=== PATIENT | female | born 1970 | race Caucasian/White ===

== ENCOUNTER 2016-10-16 14:18 | Emergency (ER) | payer OTHER ==
--- NOTE | ~2016-10-16 | EKG ---
PATIENT: ILA IVAN UNIT #: [id number] Ventricular Rate: 71 BPM Atrial Rate: 71 BPM P-R Interval: 144 ms QRS Duration: 70 ms Q-T Interval: 410 ms QTC Calculation(Bezet): 445 ms P [place]: 55 degrees Calculated R [place]: 19 degrees Calculated T [place]: 56 degrees Diagnosis Line: Normal sinus rhythm with sinus arrhythmia Diagnosis Line: Normal ECG Diagnosis Line: When compared with ECG of 09-DEC-2015 14:51, Diagnosis Line: No significant change was found Diagnosis Line: Confirmed by GLYNN FARAH MD ([id number]) on Diagnosis Line: 10/25/2016 8:27:43 AM INTERPRETING MD: GAGAN PEREZ
--- NOTE | ~2016-10-16 | CR63 ---
[facility]. [facility] A Service of [facility] & [facility] RADIOLOGY TEXT RESULTS PATIENT: ILA IVAN LOCATION: SED : 66 UNIT #: [id number] AGE: [address]: Jacqueline Patiño SEX: F ORDER DR: [id number] [address] [address] [id number] E MR#: [id number] Acc #: [id number] NAME: ILA IVAN : 1970 SEX: F STUDY DATE/TIME: 10/16/2016 15:43 UNIT: SED ROOM: STUDY DESCRIPTION: CR Chest 2 View Attending Physician: Jacqueline Patiño Pa-C Ordering Physician: Jacqueline Patiño Pa-C Primary Care Physician: Ester Leach A.P.R.N. MEDICAL IMAGING REPORT This report is preliminary unless electronic signature is present. EXAM Two views chest, 10/16/16 HISTORY Swollen legs, short of air 5 days' duration. Out of blood pressure medication because of insurance. Currently a smoker. FINDINGS PA and lateral radiographs of the chest are presented. Comparison 08/27/13. No acute bony abnormality. Degenerative changes in spine. Heart borderline enlarged. Pulmonary vasculature is prominent but remains distinct, consistent with underlying pulmonary vascular congestion. No boyd pulmonary edema. No indication of pneumonia. No pleural effusion or pneumothorax and no suspicious nodule. Calcified granuloma right lung base, stable. Dictated by... Cosmo Knight M.D. THIS IS AN ELECTRONICALLY VERIFIED REPORT Cosmo Knight M.D. at 10/17/2016 5:16 PM FARZAD/yasmine TD: 10/16/2016 22:15 JOB #: [id number] MEDICAL IMAGING REPORT Page 1 of 1
[~2016-10-16 14:18] MED LIST: ACCURETIC 20-121 TAB PO; ALBUTEROL17 GM; ALBUTEROL17 GM INH; ALBUTEROL20 ml; AMOXICILLIN PO; ATIVAN PO; BLEPH-105 ML OP; BP MEDICATION; CELEBREX100 MG PO; CHOLESTEROL MED; CIPRO PO; COUGH SYRU100 MG/5 M PO; DELSYM30 MG/5 ML PO; DELTASONE20 MG PO; DICLOFENAC PO; FLEXERIL PO; FLEXERIL10 M1 PO; GLUCOPHAGE500 M1 PO; IBUPROFEN PO; KETOPROFEN PO; LIPITOR20 MG PO; LISINOPRIL10 MG PO; LORTAB 5-325 M1 EACH PO; MEDROL DOSEPAK4 MG PO; NEURONTIN300 MG PO; NO MEDICATIONS; PARAFON FORTE500 MG PO; PERCOCET 5-3251 TAB PO; PERCOCET10 PO; PHENERGAN PO; PHENERGAN PR; PREDNISONE PO; SYMBICORT INH; TORADOL10 MG PO; TYLENOL #3 PO; UNKNOWN PAIN MED; VICODIN 5/1 TAB 5/50 PO; ZITHROMAX PO; ZOLOFT PO; ZOVIRAX800 MG PO
[2016-10-16 15:29] LABS: BASOPHIL# 0.1 X10e3 (0-0.3); EOSINOPHIL# 0.2 X10e3 (0-0.7); EOSINOPHIL% 1.8 % (0.0-7.0); HEMOGLOBIN 16.7 gm/dL (12.0-16.0); LYMPHOCYTE# 2.4 X10e3 (1.0-3.5); LYMPHOCYTE% 21.1 % (17.0-45.0); MEAN CELL VOLUME 91.1 FL (83-96); MEAN CORPUSCULAR HEMOGLOBIN 30.5 PG (28-34); MEAN CORPUSCULAR HGB CONC 33.5 g/dL (30-36); MEAN PLATELET VOLUME 7.8 FL (6.5-11.5); MONOCYTE% 8.6 % (3.0-12.0); NEUTROPHIL# 7.5 X10e3 (1.5-7.1); NEUTROPHIL% 67.5 % (40-75); PLATELET COUNT 237 X10e3 (140-420); RED BLOOD COUNT 5.48 X10e (3.90-5.30); RED CELL DISTRIBUTION WIDTH 14.6 % (11.0-15.5); WHITE BLOOD COUNT 11.1 X10e3 (4.0-10.5)
[2016-10-16 15:37] LABS: POC - CKMB <1.0 ng/mL (0.0-7.9); POC - TROPONIN 0.05 ng/mL (<=0.05)
[2016-10-16 15:41] LABS: DIFF IND NO
[2016-10-16 15:48] LABS: ALBUMIN SERUM 4.1 g/dL (3.5-5.0); BILIRUBIN, DIRECT 0.1 mg/dL (0.0-0.2); BILIRUBIN,INDIRECT 0.4 mg/dL (0.0-0.9); BILIRUBIN,TOTAL 0.5 mg/dL (0.2-2.0); CALCIUM SERUM 9.2 mg/dL (8.4-10.2); CREATININE SERUM 0.8 mg/dL (0.6-1.4); GLOM FILT RATE Estimated 87.3 mL/min (>60); POTASSIUM 4.2 mmol/L (3.5-5.1); PROTEIN TOTAL SERUM 7.4 g/dL (6.0-8.3)
== END 2016-10-16 17:17 | disposition home or self-care (01) ==
LOC: SED 14:18
PROVIDERS: Physician Assistant Medical
DX: J44.9 Chronic obstructive pulmonary disease, unspecified (principal); I10 Essential (primary) hypertension; E11.9 Type 2 diabetes mellitus without complications; F41.9 Anxiety disorder, unspecified; F17.210 Nicotine dependence, cigarettes, uncomplicated
CPT/HCPCS: 36415; 71020; 80048; 80076; 82553; 84484; 85025; 85379; 93005; 99285

== ENCOUNTER 2016-10-24 12:27 | Inpatient (IN) | payer OTHER ==
--- NOTE | ~2016-10-24 | CO ---
Unit #: [id number] #: [id number] Patient: ILA IVAN [id number] [address] [place], [place] [address] [id number] I MR#: [id number] NAME: ILA IVAN ROOM: 55 Age: 46 Sex: F Admission Date: 10/24/2016 : 1970 Attending Physician: Alexey Tarango M.D. Primary Care Physician: Alejandra Primary Care Physician Consultation Date: 10/25/2016 CONSULTATION REPORT REASON FOR CONSULT Hypoxia. HISTORY OF PRESENT ILLNESS This is a pleasant 46-year-old female with past medical history significant for morbid obesity, hypertension, COPD, ex-smoker who presented to the emergency room as a transfer from [facility] for pyelonephritis management and SVT. The patient stated that she has been fatigued and drowsy during the day for the last few weeks. She had nausea, vomiting and decreased oral intake over the last few days. Upon presentation to the other facility, the patient was found to have severe pyelonephritis. The patient was resuscitated with IV hydration generously, and she was transferred to our facility. Of note, the patient had an episode of SVT, and she was placed on Cardizem drip. The patient underwent cardioversion with conversion to normal sinus rhythm. The patient stated that she smoked for 30 years but she quit recently. She was told that she had COPD, and she is on albuterol p.r.n. She was also advised to obtain a sleep study as an outpatient, but she never did. PAST MEDICAL HISTORY 1. Hypertension. 2. COPD. 3. Morbid obesity. ALLERGIES No known drug allergies. HOME MEDICATIONS Ibuprofen. FAMILY HISTORY Coronary artery disease. SOCIAL HISTORY The patient lives with her daughter. She smoked for 30 years, but she quit recently. She does not drink alcohol or use street drugs. REVIEW OF SYSTEMS Twelve-point review of systems was obtained and was negative except for what was mentioned in the HPI. PHYSICAL EXAMINATION GENERAL: Patient is in no acute distress at this point. Unit #: [id number] #: [id number] Patient: ILA IVAN HEENT: Atraumatic, normocephalic. PERRLA, EOMI. NECK: Very obese. CHEST: Bilateral fine rhonchi but no wheezing. HEART: S1, S2. No murmur, gallops or rubs. ABDOMEN: Soft, nontender. Bowel sounds positive. No hepatosplenomegaly. EXTREMITIES: No edema or cyanosis. SKIN: No rashes. CUSTOMER SUCCESS ASSOCIATE: Awake, alert, oriented x3. No focal motor/sensory deficits. LABS AND OTHER TESTS LABORATORY: Creatinine 1.2, but it was 2 on presentation. Sodium 136. White blood count 21.3, platelets 163. IMAGING TESTS: Chest x-ray is concerning for pulmonary edema. ASSESSMENT 1. Acute hypoxic respiratory failure. 2. Pulmonary edema. 3. Morbid obesity. 4. Presumed obstructive sleep apnea. 5. Pyelonephritis. 6. Hypertension. 7. Chronic obstructive pulmonary disease. 8. Supraventricular tachycardia. 9. Ex-smoker. PLAN 1. Will continue the patient on oxygen, wean it as tolerated. Will add CPAP at night. 2. Chest x-ray is concerning for pulmonary edema. Patient received generous IV hydration, and she is currently on 200 mL of normal saline. I will stop all her IV fluids at this point, and likely she will need to be diuresed but will reassess later. 3. Will decrease her IV steroids, as I doubt the patient has COPD exacerbation and probably her symptom is more fluid overload. 4. Bronchodilator as needed. 5. She will need sleep study as an outpatient. 6. IV antibiotics pending culture. Dictated by... Jacqueline Cornejo M.D. EA/aubrey TD: 10/25/2016 12:51 JOB #: [id number] Unit #: [id number] #: [id number] Patient: ILA IVAN CONSULTATION REPORT Page 1 of 1 X JACQUELINE HORAN MD X CONSULTATION REPORT
--- NOTE | ~2016-10-24 | HP ---
Unit #: [id number] #: [id number] Patient: ILA IVAN [id number] [address] [place], [place] [address] [id number] I MR#: [id number] NAME: ILA IVAN ROOM: [facility] Age: 46 Sex: F Admission Date: 10/24/2016 : 1970 Attending Physician: Jacqueline Carey M.D. HISTORY AND PHYSICAL CHIEF COMPLAINT Pyelonephritis and supraventricular tachycardia. HISTORY OF PRESENT ILLNESS This pleasant 46-year-old female with hypertension and COPD was transferred from [facility] Emergency Department for pyelonephritis and supraventricular tachycardia. Over the past month, the patient notes that she is drowsy during the day. She notes some numbness in her fingers. Over the past three days, she has been experiencing nausea, vomiting, and not getting out of bed, with right flank pain, concentrated urine, and urinary urgency. She has been experiencing nausea and poor p.o. intake over the past few days with sweats and chills, along with a nonproductive cough. She went to [facility] ER earlier today where she was diagnosed with pyelonephritis. She was bolused with a liter of saline and given Dilaudid, Zofran, [place], and p.o. Levaquin. Then, she developed supraventricular tachycardia unresponsive to escalating doses of adenosine. Ultimately, she underwent cardioversion with conversion to a normal sinus rhythm. Patient denies chest pain with the above or palpitations. No previous history of cardiac disease or arrhythmia. PAST MEDICAL HISTORY 1. Hypertension. 2. Chronic obstructive pulmonary disease. ALLERGIES None. HOME MEDICATIONS Ibuprofen. FAMILY HISTORY Coronary artery disease. SOCIAL HISTORY The patient lives with her daughter. She smokes about a pack and a half a day. She does not drink alcohol. REVIEW OF SYSTEMS Notable for nausea, achiness, right flank pain, urinary urgency with urinary incontinence this morning, hypertension, COPD, tobacco abuse, fever, sweats, chills, and cough. All other systems were reviewed and are otherwise negative. Unit #: [id number] #: [id number] Patient: ILA IVAN PHYSICAL EXAMINATION: GENERAL: A pleasant, morbidly obese, 46-year-old female currently in no acute distress. VITAL SIGNS: Temperature 98.3 but temperature was as high as I believe 100.5 earlier, pulse 75, respirations 22, initial blood pressure 90/60, and O2 saturation 94%. HEENT: Eyes PERRLA. Extraocular muscles are intact. Pharynx is benign. Dry mucosal membranes. NECK: Supple without adenopathy or thyromegaly. CHEST: Crackles at the right base. BACK: Right CVA percussion tenderness. CARDIAC: Normal S1 and S2 without murmur. ABDOMEN: Bowel sounds are present. Right upper quadrant tenderness and right mid abdominal tenderness without rebound guarding. No hepatosplenomegaly or masses. EXTREMITIES: Without clubbing, cyanosis, or edema. Pedal pulses are present. No ulcers on the feet. NEUROLOGIC: Patient is awake, alert, and oriented. Cranial nerves are intact. Equal strength throughout. DIAGNOSTIC STUDIES ADMISSION LABORATORY: Hematocrit is 46.9, white blood count is 25.2, and normal platelet count. SMA-12: Glucose is 176, albumin 3.3, and alkaline phosphatase 101. Lipase is 91. Cardiac markers are negative. Urinalysis positive leukocytes, protein, blood with enumerable red cells and white cells and 4+ bacteria with only a few squamous cells seen. IMAGING: CT scan shows mild right hydroureter and perinephric stranding possibly related to a passed stone. No current kidney stone is noted. Gallstones noted. Hepatomegaly and hepatic steatosis. ASSESSMENT 1. Right-sided pyelonephritis. 2. Supraventricular tachycardia. 3. Complaints of dyspnea. 4. Likely obstructive sleep apnea with daytime drowsiness. 5. Chronic obstructive pulmonary disease and ongoing tobacco abuse. 6. History of hypertension. PLANS 1. Rocephin. I will hold further Levaquin given episode of supraventricular tachycardia. 2. IV fluids. 3. Obtain chest x-ray. 4. EKG, echo, and Cardiology to see. Continue Cardizem drip for now. 5. Check lactic acid level and repeat cardiac enzymes, along with coags and magnesium. 6. Pulmonary to see for likely obstructive sleep apnea. 7. Check thyroid function tests. 8. DVT prophylaxis. 9. Further workup depending on above. 1. Dictated by Shelby Felix M.D. AML/am Unit #: [id number] #: [id number] Patient: ILA IVAN TD: 10/24/2016 22:15 JOB #: [id number] HISTORY AND PHYSICAL Page 1 of 1 X Shelby Felix MD X HISTORY AND PHYSICAL
--- NOTE | ~2016-10-24 | EKG ---
PATIENT: ILA IVAN UNIT #: [id number] Ventricular Rate: 165 BPM Atrial Rate: 165 BPM P-R Interval: 124 ms QRS Duration: 126 ms Q-T Interval: 256 ms QTC Calculation(Bezet): 424 ms P [place]: 249 degrees Calculated R [place]: -101 degrees Calculated T [place]: -13 degrees Diagnosis Line: Atrial flutter with 2 to 1 block Diagnosis Line: Abnormal ECG Diagnosis Line: When compared with ECG of 16-OCT-2016 15:17, Diagnosis Line: Rhythm no longer sinus Diagnosis Line: Confirmed by AGUEDA BERNARD MD ([id number]) on Diagnosis Line: 10/27/2016 6:56:12 AM INTERPRETING MD: ULYSSES
--- NOTE | ~2016-10-24 | EKG ---
PATIENT: ILA IVAN UNIT #: [id number] Ventricular Rate: 73 BPM Atrial Rate: 73 BPM P-R Interval: 144 ms QRS Duration: 68 ms Q-T Interval: 386 ms QTC Calculation(Bezet): 425 ms P [place]: 46 degrees Calculated R [place]: 30 degrees Calculated T [place]: 71 degrees Diagnosis Line: Sinus rhythm with Premature atrial complexes Diagnosis Line: Otherwise normal ECG Diagnosis Line: When compared with ECG of 16-OCT-2016 15:17, Diagnosis Line: (unconfirmed) Diagnosis Line: Rhythm sinus Diagnosis Line: Confirmed by AGUEDA BERNARD MD ([id number]) on Diagnosis Line: 10/26/2016 7:15:04 AM INTERPRETING MD: ULYSSES
--- NOTE | ~2016-10-24 | EKG ---
PATIENT: ILA IVAN UNIT #: [id number] Ventricular Rate: 73 BPM Atrial Rate: 73 BPM P-R Interval: 144 ms QRS Duration: 80 ms Q-T Interval: 388 ms QTC Calculation(Bezet): 427 ms P [place]: 61 degrees Calculated R [place]: 67 degrees Calculated T [place]: 48 degrees Diagnosis Line: Normal sinus rhythm Diagnosis Line: Normal ECG Diagnosis Line: When compared with ECG of 24-OCT-2016 23:26, Diagnosis Line: (unconfirmed) Diagnosis Line: No significant change was found Diagnosis Line: Confirmed by AGUEDA BERNARD MD ([id number]) on Diagnosis Line: 10/26/2016 7:36:12 AM INTERPRETING MD: ULYSSES
--- NOTE | ~2016-10-24 | CR63 ---
[facility] A Service of [facility] RADIOLOGY TEXT RESULTS PATIENT: ILA IVAN LOCATION: [facility] : [birth year] UNIT #: [id number] AGE: [address]: Alexey Tarango MD SEX: F ORDER DR: [id number] [facility] [address] [place], [place] [address] [id number] I MR#: [id number] #: [id number] NAME: ILA IVAN : 1970 SEX: F STUDY DATE/TIME: 10/24/2016 22:21 UNIT: [facility] ROOM: [facility] STUDY DESCRIPTION: CR Chest 2 View Attending Physician: Jacqueline Carey M.D. Ordering Physician: Shelby Felix M.D. Primary Care Physician: No Primary Care Physician MEDICAL IMAGING REPORT This report is preliminary unless electronic signature is present EXAMINATION PA and lateral chest. DATE 10/24/2016 HISTORY Shortness of breath, headache, nausea, and vomiting; which began 3 days ago. COPD. COMPARISON PA and lateral chest, 10/16/2016. FINDINGS Study is attenuated by body habitus, particularly with respect to the lateral projection. There is mild cardiac enlargement. Fine interstitial thickening is present in both lungs thought to represent mild interstitial edema with trace fluid within the minor fissure. No consolidation. No pneumothorax. IMPRESSION 1. Fine interstitial prominence in the lungs may represent mild interstitial edema with trace fluid in the minor fissure. 2. Mild cardiac enlargement appears slightly more prominent than on the 10/16/2016 examination. 3. The study is attenuated by body habitus. Dictated by... Linda Leroy M.D. THIS IS AN ELECTRONICALLY VERIFIED REPORT Linda Leroy M.D. at 10/25/2016 10:40 AM [facility] A Service of [facility] RADIOLOGY TEXT RESULTS PATIENT: ILA IVAN LOCATION: [facility] : [birth year] UNIT #: [id number] AGE: [address]: Alexey Tarango MD SEX: F ORDER DR: TD: 10/25/2016 06:30 JOB #: [id number] MEDICAL IMAGING REPORT Page 1 of 1 COPY
--- NOTE | ~2016-10-24 | CO ---
Unit #: [id number] #: [id number] Patient: ILA IVAN [id number] [address] [place], [place] [address] [id number] I MR#: [id number] NAME: ILA IVAN ROOM: 55 Age: 46 Sex: F Admission Date: 10/24/2016 : 1970 Attending Physician: Alexey Tarango M.D. Primary Care Physician: Primary Care Physician No Consultation Date: 10/25/2016 CONSULTATION REPORT REASON FOR CONSULTATION Atrial flutter. HISTORY OF PRESENT ILLNESS This is a 46-year-old white female, new to our group with a past medical history of hypertension and hyperlipidemia, not currently on medications; obesity; and active tobacco abuse. The patient was trying to get disability a couple of years ago and underwent a nuclear stress test which was reportedly normal. Details are unavailable. She denies any previous cardiac catheterizations. There are no reports of diabetes mellitus, myocardial infarction, or cerebrovascular accident. She presented to an outside emergency department with complaints of nausea, vomiting, diarrhea, and right flank pain for the last couple of days. The pain has been very debilitating and she has been unable to get out of bed. She reports chills and sweating. She believes she had a fever, but did not check her temperature. She denies chest pain. She has had some shortness of breath recently in the last couple of days, but no PND or orthopnea. She admits to occasional lower extremity edema. She has had some palpitations in the past, but not actively. Yesterday, in the emergency department, she was slightly dizzy. In the emergency department, her temperature was 98.3, pulse 75, respirations 22, and blood pressure 90/60 with O2 saturation 94% on room air. CT of the abdomen and pelvis revealed concern for right pyelonephritis. She was found to have mild right hydronephrosis and perinephric stranding. Urinalysis revealed leuks, blood, and bacteria. She was given pain medications and IV antibiotics as well as fluids. In the emergency department, she was noted to have heart rate in the 170s to 180s,which was thought to be SVT. She was given three doses of adenosine and it appeared when the heart rate slowed down, that she had atrial flutter according to emergency room report from the emergency room physician. She was started on diltiazem drip for rate control, but her rates were very fast and her blood pressure was borderline low. She was given a dose of propofol and was cardioverted successfully to sinus rhythm. She was transferred to [facility] for pyelonephritis and Cardiology was consulted. PAST MEDICAL HISTORY 1. Nuclear stress test reportedly 4 to 5 years ago. Normal per patient. Details unavailable. 2. Hypertension, not on medications. 3. Hyperlipidemia, not on medications. 4. Morbid obesity. Unit #: [id number] #: [id number] Patient: ILA IVAN 5. COPD. 6. Family history of heart disease. 7. Active tobacco abuse. PAST SURGICAL HISTORY None. HOME MEDICATIONS Albuterol as needed. 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 She attempted to get disability a couple of years ago due to weight and COPD, but was reportedly denied. She is sedentary outside work. She admits to active tobacco abuse with one pack of cigarettes per day. There were no reports of alcohol or drug use. FAMILY HISTORY Significant for heart disease in her parents. PHYSICAL EXAMINATION VITAL SIGNS: Temperature 99.8, pulse 83, blood pressure 143/92. CONSTITUTIONAL: This is a 46-year-old, morbidly obese, white female. SKIN: Warm and dry. NECK: Supple. No jugular vein distention. No hepatojugular reflux. Normal carotid upstrokes. No carotid bruits auscultated. HEART: S1 and S2. Regular rate and rhythm. No murmurs, rubs, or gallops. LUNGS: Bilateral breath sounds are diminished in the bases. Respirations are even, slightly tachypneic, and labored. ABDOMEN: Obese, soft, generalized tenderness, and nondistended. Positive bowel sounds auscultated in all quadrants. No ascites noted. EXTREMITIES: Bilateral lower extremities have no pretibial pitting edema. DP and PT pulses are 2+. Capillary refill is less than 2 seconds. DIAGNOSTIC STUDIES LABORATORY RESULTS: White blood cell count is 12.3, hemoglobin 13.9, hematocrit 43.5, platelets 163. Sodium 136, potassium 4.2, chloride 101, CO2 of 27, BUN 28, creatinine 1.3, glucose 149, magnesium 1.8. Troponin 0.05 and 0.09. Hemoglobin A1c 6.8. Lactic acid 1.1. TSH 1.7. INR 1.0. D-dimer 192. IMAGING STUDIES: Chest x-ray on 10/24/2016 revealed fine interstitial prominence, which may represent mild interstitial edema with trace fluid in the minor fissure. Mild cardiac enlargement, more prominent than previous study on 10/16/2016. The study was technically difficult due to body habitus. CT of the abdomen and pelvis on 10/24/2016 reveals mild right hydronephrosis and perinephric stranding. No obstructing radiodense ureteral calculus. Uncomplicated cholelithiasis. Hepatomegaly with fatty liver. CARDIOVASCULAR STUDIES: EKG reveals normal sinus rhythm with nonspecific ST-T wave changes in the lateral leads. QTc 369 msec. Telemetry reveals atrial flutter with rapid ventricular response, now sinus rhythm. IMPRESSION Unit #: [id number] #: [id number] Patient: ILA IVAN 1. Right pyelonephritis. 2. Acute kidney injury. 3. Paroxysmal atrial flutter with 2:1 block, newly diagnosed. 4. Hypertension. 5. Hyperlipidemia. 6. Chronic obstructive pulmonary disease. 7. Family history of heart disease. 8. Morbid obesity. 9. Active tobacco abuse. PLAN 1. The patient presented to hospital with nausea, vomiting, and right flank pain. She was admitted for right pyelonephritis. 2. Cardiology was consulted due to tachyarrhythmias. Upon review of telemetry, the patient appears to have paroxysmal atrial flutter. 3. The patient's diltiazem drip will be discontinued and should be placed on oral diltiazem with the first dose now. The patient has a CHADS2-VASc score of 2 due to gender and hypertension. We will need to discuss long-term anticoagulation prior to discharge. 4. A 2D echocardiogram will be obtained to assess LV function and valves. 5. The patient has shortness of breath on exam, which could be due to chronic obstructive pulmonary disease versus mild volume overload. We will monitor volume status closely. 6. There are no complaints of chest pain and cardiac enzymes are negative. 7. The patient has been educated on weight loss by means of decreased caloric intake and exercise. Dictated by... Leanna Cheung APRN TR/yg TD: 10/26/2016 12:57 JOB #: [id number] CONSULTATION REPORT Page 1 of 1 X X CONSULTATION REPORT
--- NOTE | ~2016-10-24 | CT4 ---
[facility] A Service [facility] RADIOLOGY TEXT RESULTS PATIENT: ILA IVAN LOCATION: [place] [address] : [birth year] UNIT #: [id number] AGE: [address]: Alexey Tarango MD SEX: F ORDER DR: [id number] [place] [id number] I MR#: [id number] Acc #: [id number] NAME: ILA IVAN : 1970 SEX: F STUDY DATE/TIME: 10/24/2016 13:23 UNIT: SEDOF ROOM: [id number] STUDY DESCRIPTION: CT Abd and Pelv Wo Cont Attending Physician: Jacqueline Carey M.D. Ordering Physician: Don Yang M.D. Primary Care Physician: No Primary Care Physician MEDICAL IMAGING REPORT This report is preliminary unless electronic signature is present. EXAM CT abdomen and pelvis without contrast. INDICATION Nausea, vomiting, headache, right lower quadrant abdominal pain for the past 3 days. PROCEDURE Contrast-enhanced CT abdomen and pelvis. This CT exam was performed with one or more of the following radiation dose reduction techniques: automatic exposure control, adjustment of mA and/or kV according to patient size, and iterative reconstruction. COMPARISON 06/22/2009 FINDINGS ABDOMEN WITHOUT CONTRAST: Included lung bases are clear. Liver enlarged measuring 24.8 cm. Hepatic steatosis. Spleen, adrenal glands, pancreas unremarkable. 2.5 cm stone in the gallbladder. No evidence for active inflammation. The appendix is normal. Bowel loops are nondilated. There is mild right-sided hydronephrosis and perinephric stranding. No radiodense ureteral calculus. PELVIS WITHOUT CONTRAST: No radiodense bladder calculus. No aggressive appearing bone lesions. IMPRESSION [facility] A Service of [facility] RADIOLOGY TEXT RESULTS PATIENT: ILA IVAN LOCATION: [place] [address] : [birth year] UNIT #: [id number] AGE: [address]: Alexey Tarango MD SEX: F ORDER DR: 1. Mild right hydronephrosis and perinephric stranding. There is no obstructing radiodense ureteral calculus. This could represent changes of a recently passed stone. 2. Uncomplicated cholelithiasis. 3. Hepatomegaly with steatosis. Dictated by... Johnny Murphy M.D. THIS IS AN ELECTRONICALLY VERIFIED REPORT Johnny Murphy M.D. at 10/25/2016 2:01 PM ANTON/linus TD: 10/24/2016 17:12 JOB #: [id number] MEDICAL IMAGING REPORT Page 1 of 1
--- NOTE | ~2016-10-24 | BMI ---
[facility] Nutrition Therapy DATE: 10/25/16 Patient: ILA IVAN Physician: RICARDO Address: [address] [place], [place] [address]VINCENTWI OLGA LIDIA 4 Room/Bed: [address] [place] [address], Zip: [place] [address] Admit Date: 10/24/16 Date of : [birth year] Height: Weight: 310 141 HIGH BMI NOTE: DX: 46 y/o female admitted for headache, n/v ANTHROPOMETRICS: ht: 5'4" wt: 310# (141 kg), BMI: 53 DIET: No diet at this time INTERVENTION: 1. No diet at this time RECOMMENDATIONS: 1. Once medically feasible, advance pt to healthy heart + consistent carbohydrate diet in order to promote gradual weight loss towards a healthy BMI (19.0-25.0) or +/-10% IBW. RD will f/u per protocol. Respectfully, COLBY GRADY, physician internist Berto He MS, RD, LD [employer] [facility] Nutrition[facility] cc: client file
--- NOTE | ~2016-10-24 | DS ---
Unit #: [id number] #: [id number] Patient: ILA IVAN [id number] [address] [address] [id number] MR#: [id number] NAME: ILA IVAN ROOM: 55 Age: 46 Sex: F Admission Date: 10/24/2016 : 1970 Discharge Date: Attending Physician: Alexey Tarango M.D. Primary Care Physician: No Primary Care Physician DISCHARGE SUMMARY DIAGNOSES ON ADMISSION 1. Acute pyelonephritis. 2. SVT. DIAGNOSIS ON DISCHARGE 1. Acute respiratory failure, improved. 2. Acute Escherichia coli pyelonephritis, improved. 3. Atrial fibrillation/flutter, resolved. 4. Hypertension. 5. Obstructive sleep apnea syndrome. 6. Tobacco abuse. 7. Morbid obesity. 8. Type 2 diabetes mellitus, new. 9. Acute kidney injury. CONSULTATIONS 1. Dr. Emani Cornejo in pulmonary consultation. 2. Dr. Monet in cardiac consultation. DIAGNOSTIC STUDIES CARDIOVASCULAR: Patient had an echocardiogram done, which revealed ejection fraction of 55%. There was mild tricuspid regurgitation present. Right ventricular systolic pressure was 46. LABORATORY: Patient's creatinine is 0.9, sodium 139, and potassium is 3.9. WBC is 14.1, hemoglobin is 13.2, and platelet count is 222. Patient's BNP was 220. Troponin was 0.04. (1) was 71. Urine culture was positive for E. coli. TSH was 1.70. Hemoglobin A1c was 6.8. IMAGING: CT scan of abdomen and pelvis revealed mild right hydronephrosis and perinephric stranding. There was uncomplicated cholelithiasis present. HOSPITAL COURSE This 46-year-old female was presented to [facility] with shortness of air. Details are as per admission H and P. Acute respiratory failure. Patient was seen by pulmonary in consultation. We will check patient's pulse ox on room air. Acute exacerbation of COPD. Patient was treated with Solu-Medrol. Her wheezing has resolved. Paroxysmal atrial flutter. Patient was seen by cardiology in consultation. She has converted to sinus rhythm now. She was started on Unit #: [id number] #: [id number] Patient: ILA IVAN. Possible acute diastolic heart failure. Patient was treated with diuretics and feeling better. Acute E. coli pyelonephritis. We will treat patient with antibiotics at home. She is afebrile. Type 2 diabetes mellitus, which is new. It is secondary to morbid obesity. I advised patient to lose weight. I will start her on metformin 500 mg p.o. b.i.d. and will advise to have her to lose weight and follow up with primary care physician. Today, patient is comfortable and is not in any acute distress. Acute kidney injury. Patient's creatinine is back to normal now at 0.9. PHYSICAL EXAMINATION VITAL SIGNS: Reveal a temperature of 97.8, pulse is 57 per minute, respiratory rate is 16 per minute, and blood pressure is 174/81. HEENT: Revealed no conjunctival congestion. Sclerae are nonicteric. NECK: Supple. Trachea is central. RESPIRATORY: Revealed decreased breath sounds bilaterally. There are no wheezes or crackles. HEART: Regular rate and rhythm. S1 and S2. ABDOMEN: Soft and nontender. Bowel sounds are present. Patient is morbidly obese. EXTREMITIES: Reveal (2) edema. SKIN: Warm and dry. RECOMMENDATIONS ON DISCHARGE 1. Condition is stable. 2. Activity is as tolerated. MEDICATIONS 1. Albuterol (Ventolin) 2 puffs q.4 hours p.r.n. for shortness of air. 2. Prednisone 20 mg p.o. daily for 5 days and then 10 mg p.o. daily for 5 day and then discontinue. 3. Tylenol 325 mg p.o. q.4 hours p.r.n. 4. Cardizem CD 120 mg p.o. b.i.d. 5. Omnicef 300 mg p.o. b.i.d. for 1 week. 6. Glucophage 500 mg p.o. b.i.d. 7. Hydralazine 25 mg p.o. t.i.d. 8. I initially thought to start patient on lisinopril, but her creatinine was elevated. That is why I did not start her on that, especially when I was adding Glucophage. Please make note patient's pulse ox was 85% on room air. She will need 2 liters of home oxygen 24 hours. Patient will be discharged home. The plan was discussed with Dr. Liu who will see patient prior to discharge. FOLLOWUP 1. Patient was advised to follow up with primary care physician in one week and have a CBC and BMP done. Unit #: [id number] #: [id number] Patient: ILA IVAN 2. Patient is advised to follow up with cardiology as recommended on December 26 at 1:15 p.m. 3. Patient advised to follow up with Dr. Liu as recommended. Patient will be provided diabetic and weight loss diet information. She is advised to do Accu-Cheks a.c. and q.h.s. and diabetic teaching will be done prior to discharge. She is advised to call primary care physician if her Accu-Chek is less than 80 or greater than 350. Dictated by... Juliana Patel TD: 10/28/2016 12:15 JOB #: [id number] CC: Ester Leach A.P.R.N. DISCHARGE SUMMARY Page 1 of 1 X Alexey Tarango MD X DISCHARGE SUMMARY
[2016-10-24 13:30] LABS: URINE SOURCE CLEAN CATCH
[2016-10-24 13:34] LABS: BASOPHIL% 0.1 % (0-2.5); EOSINOPHIL% 0.1 % (0.0-7.0); HEMATOCRIT 46.9 % (35.0-45.0); HEMOGLOBIN 15.5 gm/dL (12.0-16.0); LYMPHOCYTE% 3.9 % (17.0-45.0); MEAN CELL VOLUME 91.8 FL (83-96); MEAN CORPUSCULAR HEMOGLOBIN 30.3 PG (28-34); MEAN PLATELET VOLUME 8.1 FL (6.5-11.5); MONOCYTE# 1.9 X10e3 (0-1.0); MONOCYTE% 7.7 % (3.0-12.0); NEUTROPHIL# 22.2 X10e3 (1.5-7.1); NEUTROPHIL% 88.2 % (40-75); PLATELET COUNT 205 X10e3 (140-420); RED BLOOD COUNT 5.11 X10e (3.90-5.30); WHITE BLOOD COUNT 25.2 X10e3 (4.0-10.5)
[2016-10-24 13:36] LABS: URINE APPEARANCE CLOUDY; URINE BLOOD 3+ (NEG); URINE COLOR DK YELLOW; URINE GLUCOSE NEG (NORM); URINE KETONE NEG (NEG); URINE LEUKOCYTE ESTERASE 2+ (NEG); URINE NITRATE NEG (NEG); URINE PH 5.5 (5-8); URINE PROTEIN 3+ (NEG); URINE SPECIFIC GRAVITY >=1.030 (1.003-1.035)
[2016-10-24 13:41] LABS: DIFF IND YES
[2016-10-24 13:41] LABS: MICRO INDICATED? YES; URINE BILIRUBIN NEG (NEG)
[2016-10-24 13:42] LABS: URINE RBC INNUM /[HPF] (0-2); URINE WBC INNUM /[HPF] (0-5)
[2016-10-24 13:43] LABS: CULTURE INDICATED? YES; URINE BACTERIA 4+ (NEG); URINE SQUAMOUS EPITHELIAL CELL FEW /[HPF]
[2016-10-24 13:57] LABS: ALBUMIN SERUM 3.3 g/dL (3.5-5.0); BILIRUBIN, DIRECT 0.5 mg/dL (0.0-0.2); BILIRUBIN,TOTAL 1.5 mg/dL (0.2-2.0); BUN/CREATININE RATIO 17.14; CALCIUM SERUM 8.8 mg/dL (8.4-10.2); CREATININE SERUM 1.4 mg/dL (0.6-1.4); GLOM FILT RATE Estimated 44.3 mL/min (>60); POTASSIUM 3.7 mmol/L (3.5-5.1); PROTEIN TOTAL SERUM 7.3 g/dL (6.0-8.3)
[2016-10-24 14:20] LABS: ANISOCYTOSIS SL; PLATELET ESTIMATE NORMAL (NORMAL); POLYCHROMASIA SL
[2016-10-24 16:11] LABS: POC - TROPONIN <0.05 ng/mL (<=0.05)
[2016-10-24 22:47] LABS: BASOPHIL% 0.1 % (0-2.5); EOSINOPHIL% 0.2 % (0.0-7.0); HEMATOCRIT 42.4 % (35.0-45.0); HEMOGLOBIN 13.7 gm/dL (12.0-16.0); LYMPHOCYTE# 0.9 X10e3 (1.0-3.5); LYMPHOCYTE% 3.3 % (17.0-45.0); MEAN CORPUSCULAR HGB CONC 32.3 g/dL (30-36); MEAN PLATELET VOLUME 8.2 FL (6.5-11.5); MONOCYTE# 1.9 X10e3 (0-1.0); NEUTROPHIL# 24.4 X10e3 (1.5-7.1); NEUTROPHIL% 89.4 % (40-75); PLATELET COUNT 202 X10e3 (140-420); RED BLOOD COUNT 4.56 X10e (3.90-5.30); RED CELL DISTRIBUTION WIDTH 15.4 % (11.0-15.5); WHITE BLOOD COUNT 27.3 X10e3 (4.0-10.5)
[2016-10-24 22:48] LABS: DIFF IND YES
[2016-10-24 23:04] LABS: INR 1.1; PROTHROMBIN TIME (PATIENT) 11.4 SECONDS (10.0-11.7)
[2016-10-24 23:06] LABS: BUN/CREATININE RATIO 15.5; CALCIUM SERUM 8.1 mg/dL (8.4-10.2); GLOM FILT RATE Estimated 28.8 mL/min (>60); MAGNESIUM 1.8 mg/dL (1.6-3.0); POTASSIUM 4.2 mmol/L (3.5-5.1)
[2016-10-24 23:13] LABS: ANISOCYTOSIS SL; HYPERSEGMENTED POLYS PRESENT; PLATELET ESTIMATE DECREASED (NORMAL)
[2016-10-24] MEDS ORDERED: IBUPROFEN800 MG PO (23:47)
[2016-10-25 06:25] LABS: BASOPHIL% 0.1 % (0-2.5); EOSINOPHIL% 0.1 % (0.0-7.0); HEMATOCRIT 43.5 % (35.0-45.0); HEMOGLOBIN 13.9 gm/dL (12.0-16.0); LYMPHOCYTE# 0.7 X10e3 (1.0-3.5); LYMPHOCYTE% 3.2 % (17.0-45.0); MEAN CORPUSCULAR HEMOGLOBIN 29.9 PG (28-34); MEAN CORPUSCULAR HGB CONC 31.9 g/dL (30-36); MEAN PLATELET VOLUME 8.1 FL (6.5-11.5); MONOCYTE# 1.8 X10e3 (0-1.0); MONOCYTE% 8.4 % (3.0-12.0); NEUTROPHIL# 18.8 X10e3 (1.5-7.1); NEUTROPHIL% 88.2 % (40-75); PLATELET COUNT 163 X10e3 (140-420); RED BLOOD COUNT 4.63 X10e (3.90-5.30); RED CELL DISTRIBUTION WIDTH 15.8 % (11.0-15.5); WHITE BLOOD COUNT 21.3 X10e3 (4.0-10.5)
[2016-10-25 06:26] LABS: DIFF IND NO
[2016-10-25 09:50] LABS: BUN/CREATININE RATIO 21.53; CALCIUM SERUM 7.8 mg/dL (8.4-10.2); CREATININE SERUM 1.3 mg/dL (0.6-1.4); GLOM FILT RATE Estimated 48.5 mL/min (>60); POTASSIUM 4.2 mmol/L (3.5-5.1)
[2016-10-26 06:48] LABS: HEMOGLOBIN 13.4 gm/dL (12.0-16.0); MEAN CELL VOLUME 95.4 FL (83-96); MEAN CORPUSCULAR HEMOGLOBIN 29.7 PG (28-34); MEAN CORPUSCULAR HGB CONC 31.1 g/dL (30-36); MEAN PLATELET VOLUME 8.8 FL (6.5-11.5); RED BLOOD COUNT 4.51 X10e (3.90-5.30); RED CELL DISTRIBUTION WIDTH 16.2 % (11.0-15.5); WHITE BLOOD COUNT 12.8 X10e3 (4.0-10.5)
[2016-10-26 07:48] LABS: ALBUMIN SERUM 2.5 g/dL (3.5-5.0); BILIRUBIN,TOTAL 0.4 mg/dL (0.2-2.0); BUN/CREATININE RATIO 26.66; CALCIUM SERUM 8.4 mg/dL (8.4-10.2); CREATININE SERUM 0.9 mg/dL (0.6-1.4); GLOM FILT RATE Estimated 75.7 mL/min (>60); POTASSIUM 4.7 mmol/L (3.5-5.1); PROTEIN TOTAL SERUM 5.8 g/dL (6.0-8.3)
[2016-10-26 13:58] LABS: CHOLESTEROL 222 mg/dL (0-200); HDL CHOLESTEROL 17 mg/dL (35-95)
[2016-10-26 14:00] LABS: TRIGLYCERIDES 415 mg/dL (10-160)
[2016-10-28 05:21] LABS: HEMATOCRIT 41.3 % (35.0-45.0); HEMOGLOBIN 13.2 gm/dL (12.0-16.0); MEAN CELL VOLUME 93.1 FL (83-96); MEAN CORPUSCULAR HEMOGLOBIN 29.6 PG (28-34); MEAN CORPUSCULAR HGB CONC 31.9 g/dL (30-36); MEAN PLATELET VOLUME 7.7 FL (6.5-11.5); RED BLOOD COUNT 4.44 X10e (3.90-5.30); RED CELL DISTRIBUTION WIDTH 14.6 % (11.0-15.5); WHITE BLOOD COUNT 14.1 X10e3 (4.0-10.5)
[2016-10-28 06:25] LABS: BUN/CREATININE RATIO 22.22; CALCIUM SERUM 8.5 mg/dL (8.4-10.2); CREATININE SERUM 0.9 mg/dL (0.6-1.4); GLOM FILT RATE Estimated 75.7 mL/min (>60); POTASSIUM 3.9 mmol/L (3.5-5.1)
[2016-10-28] MEDS ORDERED: TYL325 PO (14:34)
[2016-10-28] MEDS ORDERED: OMNICEF300 MG PO (14:35)
[2016-10-28] MEDS ORDERED: GLUCOPHAGE500 MG PO (14:35)
[2016-10-28] MEDS ORDERED: HYDRALAZINE HCL25 MG PO (15:04)
[2016-10-28] MEDS ORDERED: CARDIZEM SR PO (15:05)
[2016-10-28] MEDS ORDERED: [UNRECOGNIZED DRUG - REMARK] (15:06)
== END 2016-10-28 17:54 | disposition home or self-care (01) | DRG 189 ==
LOC: SED 12:27 → SEDOF 16:11 → SED 16:11 → C5B 20:53 → SEDOF 20:53 → C5B 21:30 → SEDOF 21:30 → C5B 10-25 07:59 → UNDODEPER 10-25 20:07 → C5B 10-28 17:54
PROVIDERS: Emergency Medicine; Internal Medicine; Internal Medicine Cardiovascular Disease
PROC: 5A2204Z Restoration of Cardiac Rhythm, Single (ICD-10-PCS; 2016-10-24)
PROC: B24BYZZ Ultrasonography of Heart with Aorta using Other Contrast (ICD-10-PCS; principal; 2016-10-25)
DX: J96.01 Acute respiratory failure with hypoxia (principal); I50.31 Acute diastolic (congestive) heart failure; I47.1 Supraventricular tachycardia; N17.9 Acute kidney failure, unspecified; N12 Tubulo-interstitial nephritis, not specified as acute or chronic; I48.92 Unspecified atrial flutter; J44.1 Chronic obstructive pulmonary disease with (acute) exacerbation; Z68.43 Body mass index [BMI] 50.0-59.9, adult; G47.33 Obstructive sleep apnea (adult) (pediatric); E66.01 Morbid (severe) obesity due to excess calories; Z82.49 Family history of ischemic heart disease and other diseases of the circulatory system; Z87.891 Personal history of nicotine dependence; I11.0 Hypertensive heart disease with heart failure; B96.20 Unspecified Escherichia coli [E. coli] as the cause of diseases classified elsewhere; E11.9 Type 2 diabetes mellitus without complications
CPT/HCPCS: 36415; 71020; 74176; 80048; 80053; 80061; 80076; 81003; 82550; 82553; 83036; 83605; 83690; 83735; 83880; 84443; 84480; 84484; 85025; 85027; 85610; 85730; 87086; 87088; 87186; 93005; 93306; 94640; 94660; 94760; 96374; 96375; 99291; J0153; J0360; J0696; J1170; J1650; J2405; J2920; J2930

== ENCOUNTER 2016-12-26 16:04 | Emergency (ER) | payer OTHER ==
[~2016-12-26 16:04] MED LIST changes: +CARDIZEM SR PO; +GLUCOPHAGE500 MG PO; +HYDRALAZINE HCL25 MG PO; +IBUPROFEN800 MG PO; +OMNICEF300 MG PO; +TYL325 PO; +[UNRECOGNIZED DRUG - REMARK]
[2016-12-26 16:29] LABS: URINE APPEARANCE SL CLOUDY; URINE BILIRUBIN NEG (NEG); URINE BLOOD TRACE-INTACT (NEG); URINE COLOR YELLOW; URINE GLUCOSE NEG (NORM); URINE KETONE NEG (NEG); URINE LEUKOCYTE ESTERASE 3+ (NEG); URINE NITRATE POS (NEG); URINE PH 6.5 (5-8); URINE PROTEIN TRACE (NEG); URINE SOURCE CLEAN CATCH; URINE SPECIFIC GRAVITY 1.025 (1.003-1.035)
[2016-12-26 16:43] LABS: CULTURE INDICATED? YES; MICRO INDICATED? YES; URINE BACTERIA 2+ (NEG); URINE RBC 0-2 /[HPF] (0-2); URINE SQUAMOUS EPITHELIAL CELL FEW /[HPF]
== END 2016-12-26 17:23 | disposition home or self-care (01) ==
LOC: SED 16:04
PROVIDERS: Physician Assistant Medical
DX: N39.0 Urinary tract infection, site not specified (principal); E11.9 Type 2 diabetes mellitus without complications; I10 Essential (primary) hypertension; J44.9 Chronic obstructive pulmonary disease, unspecified; F41.9 Anxiety disorder, unspecified
CPT/HCPCS: 81003; 87086; 87088; 87186; 99283